=== PATIENT | male | born 1940 | race Caucasian/White ===

== ENCOUNTER 2022-07-05 10:10 | Emergency (ER) | payer MEDICARE ==
[2022-07-05] MEDS ORDERED: Ondansetron ODT 4 MG TAB ONE (10:56)
[2022-07-05] MEDS ORDERED: Lidocaine Viscous Sol 2% 15 ml UD Cup ONE (10:57)
[2022-07-05] MEDS ORDERED: Mag-Al Plus 1200 MG/1200 MG/120 MG/30 ML UDCUP ONE (10:57)
== END 2022-07-05 11:31 | disposition home or self-care (01) ==
LOC: BURERS 10:10
DX: F45.8 Other somatoform disorders (principal); E78.00 Pure hypercholesterolemia, unspecified; I10 Essential (primary) hypertension
CPT/HCPCS: 99283; Q0162